=== PATIENT | female | born 1975 | race African-American/Black ===

== ENCOUNTER 2019-12-04 09:17 | Emergency (ER) | payer MEDICAID ==
[~2019-12-04] VITALS: Ht 157.5 cm; Wt 63.0 kg
[2019-12-04] MEDS ORDERED: LITH20CA PO (09:28)
[2019-12-04] MEDS ORDERED: OLANZAPINE 10 MG/VIAL IM STA (09:32)
[2019-12-04] MEDS ORDERED: DIPHENHYDRAMINE 50MG/ML VIAL IM STA (09:32)
[2019-12-04] MEDS: LORAZEPAM 2MG/ML CPJ IM STA ×2 (09:45→10:45)
[2019-12-04 11:04] LABS: CLARITY URINE CLEAR (CLEAR); COLOR URINE YELLOW (YELLOW); KETONES URINE TRACE (NEGATIVE); LEUKOCYTE ESTERASE URINE TRACE (NEGATIVE); NITRITE URINE NEGATIVE (NEGATIVE); OCCULT BLOOD URINE NEGATIVE (NEGATIVE); PH URINE 5.5 (4.5-8.0); PROTEIN URINE NEGATIVE (NEGATIVE); SPECIFIC GRAVITY URINE 1.024 (1.005-1.030)
[2019-12-04 11:13] LABS: BASOPHILS % 0.3 % (0.0-2.0); EOSINOPHILS % 0.5 % (0.0-5.0); HEMATOCRIT. 37.4 % (36.0-48.0); HEMOGLOBIN. 13.3 g/dL (12.0-16.0); LYMPHOCYTES % 20.8 % (20.0-50.0); MEAN CORPUSCULAR HEMOGLOBIN 31.7 pg (28.0-32.0); MEAN CORPUSCULAR VOLUME 89.1 fL (81.0-99.0); MEAN PLATELET VOLUME 7.9 fl (7.4-10.4); MONOCYTES % 8.8 % (2.0-8.0); NEUTROPHILS % 69.6 % (40.0-76.0); PLATELET 268 x1000/uL (130-400); RED CELL DISTRIBUTION WIDTH 13.3 % (11.6-14.6)
[2019-12-04 11:20] LABS: CHLORIDE 107 mEq/L (98-107)
[2019-12-04 11:21] LABS: *BENZODIAZEPINES SCREEN URINE NEGATIVE (NEGATIVE); *COCAINE SCREEN URINE NEGATIVE (NEGATIVE)
[2019-12-04 11:23] LABS: *AMPHETAMINES SCREEN URINE NEGATIVE (NEGATIVE); *BARBITURATES SCREEN URINE NEGATIVE (NEGATIVE); CANNABINOID URINE SCREEN NEGATIVE (NEGATIVE); METHADONE URINE SCREEN NEGATIVE (NEGATIVE); OPIATES URINE SCREEN NEGATIVE (NEGATIVE); PHENCYCLIDINE URINE SCREEN NEGATIVE (NEGATIVE)
[2019-12-04 11:25] LABS: ETHANOL BLOOD < 10 mg/dL
[2019-12-04] MEDS ORDERED: LORAZEPAM 2MG/ML CPJ IM ONE (19:15)
[2019-12-04] MEDS ORDERED: HALOPERIDOL LACTATE 5MG/ML VIAL IM ONE (19:15)
[2019-12-04] MEDS ORDERED: DIPHENHYDRAMINE 50MG/ML VIAL IM ONE (20:15)
[2019-12-05 13:50] VITALS: BP 135/65
== END 2019-12-05 14:25 | disposition home or self-care (01) ==
LOC: ER 09:17
DX: F30.9 Manic episode, unspecified (principal); Z98.890 Other specified postprocedural states
CPT/HCPCS: 36415; 80053; 80178; 80305; 80320; 81003; 82962; 85025; 96372; 99285; J1200; J1630; J2060; J3490; G0480